=== PATIENT | male | born 1990 | race Caucasian/White ===

== ENCOUNTER 2018-09-24 18:55 | Emergency (ER) | payer BC, OTHER ==
[~2018-09-24] VITALS: Wt 97.2 kg
[2018-09-24 18:59] VITALS: BP 125/74; PULSE 80; RESP 18
[2018-09-24] MEDS ORDERED: IBUPROFEN 800 MG TAB PO ONE (23:00)
[2018-09-25] MEDS ORDERED: IBUP800T48 PO (00:36)
--- NOTE | 2018-09-25 00:45 | ERD ---
ER Documentation Chief Complaint Chief Complaint PAIN AT LEFT 4 DIGIT AFTER BENDING BACKWARDS HPI 28-year-old male who presents with left fourth digit pain. The patient states that he had a mechanical trip and fall and had a hyperextension at the distal finger. The patient notes bruising and tenderness to the distal tip of the finger. He is right-hand dominant. No limited range of motion. Pain is 5 out of 10 and throbbing. This occurred just prior to arrival. ROS All systems reviewed and are negative except as per history of present illness. Medications Home Meds Active Scripts Ibuprofen* (Motrin*) 800 Mg Tab, 800 MG PO Q6H PRN for PAIN AND OR ELEVATED TEMP, #30 TAB Prov:GERALDO ZHONG MD 09/25/18 Allergies Allergies: Coded Allergies: No Known Drug Allergy (Verified Allergy, Unknown, 04/15/07) PMhx/Soc Medical and Surgical Hx: pt denies Medical Hx, pt denies Surgical Hx Hx Alcohol Use: No Hx Substance Use: No Hx Tobacco Use: No Smoking Status: Never smoker Physical Exam Vitals Vital Signs Date Temp Pulse Resp B/P (MAP) Pulse Ox O2 O2 Flow FiO2 Time Delivery Rate 09/24/18 98.6 80 18 125/74 96 18:59 (91) Physical Exam General: Well developed, well nourished, no acute distress Head: Normocephalic, atraumatic. Eyes: EOM intact ENT: Moist mucous membranes Neck: Full ROM Respiratory: No respiratory distress Cardiovascular: Well perfused distally Abdominal: Nondistended : Deferred MSK: Left hand, fourth finger has ecchymoses and swelling to the distal tip. The patient has focal tenderness just distal to the DIP joint. Patient's FDS, FDP and extensor tendon function appear to be intact. Good capillary refill. Intact radial and ulnar pulses. Neurologic: Alert and oriented, moving all extremities, normal speech, steady gait Skin: No rash Psych: Normal mood Results 24 hrs Current Medications Medications Dose Sig/Tay Start Time Status Last (Trade) Ordered Route PRN Stop Time Admin Dose Reason Admin Ibuprofen 800 mg ONCE ONCE 09/24/18 DC 09/24/18 (Motrin) PO 23:00 22:45 09/24/18 23:01 Procedures/MDM EKG, MONITORS, & DIAGNOSTIC IMAGING: X-ray left fourth finger: I reviewed and interpreted multiple views of the x-ray Bones: Transverse distal phalanx fracture Soft tissue: No evidence of foreign body Splint Application Note: Splint type: Aluminum Extremity: Left fourth finger Indication: Fracture The patient was consented at bedside prior to splint application and states understanding of risks, benefits, and alternatives. The patient was neurovascularly intact prior to and status post application of the splint. The patient tolerated the procedure well and there were no complications. MEDICAL DECISION MAKING: The patient has a left fourth finger injury consistent with possible sprain versus fracture. X-ray imaging indicated. ER COURSE: * Motrin provided, splint applied * X-ray imaging confirms fracture. The patient is immobilized, outpatient hand surgery follow-up recommended. CONSULTATION: [None] DISPOSITION PLAN: The patient does not have an identifiable emergent medical condition that warrants inpatient hospitalization at this time. The patient is deemed safe for discharge with outpatient follow-up. We discussed follow up with the patient's primary care doctor within 24 to 48 hours as needed. We also discussed return to the emergency room for worsening symptoms or worsening condition. Outpatient referral: Hand surgery Discharge Medications: Motrin Departure Diagnosis: Primary Impression: Fracture of phalanx of left ring finger Encounter type: initial encounter Fracture type: closed Phalanx: distal Fracture alignment: nondisplaced Qualified Codes: S62.665A - Nondisplaced fracture of distal phalanx of left ring finger, initial encounter for closed fracture Condition: Stable Patient Instructions: Finger and Toe Fractures (Broken Finger or Toe) Referrals: [facility] Urgent Care 7 a.m.- 11 p.m. Every Day of the Week NO APPOINTMENT OR AUTHORIZATION NEEDED [facility] Hours: Mon-Fri 9:00 AM - 5:00 PM Additional Instructions: Call your primary care doctor TOMORROW for an appointment during the next 1 WEEK.Tell the national secretary that you were referred from this facility.See the doctor sooner or return here if your condition worsens before your appointment time. GERALDO ZHONG MD Sep 25, 2018 00:45
== END 2018-09-25 00:59 | disposition home or self-care (01) ==
LOC: E/R 18:55
DX: S62.665A Nondisplaced fracture of distal phalanx of left ring finger, initial encounter for closed fracture (principal); W01.0XXA Fall on same level from slipping, tripping and stumbling without subsequent striking against object, initial encounter; Y92.9 Unspecified place or not applicable
CPT/HCPCS: 73140